=== PATIENT | male | born 1940 | race Caucasian/White ===

== ENCOUNTER → 2023-03-17 | Outpatient (CLI) | payer MEDICARE | LOC: LAB 10:17 → LAB SHORT 10:17 | DX: L08.9 Local infection of the skin and subcutaneous tissue, unspecified (principal) | CPT/HCPCS: 87070; 87205 ==

== ENCOUNTER → 2023-05-19 | Outpatient (CLI) | payer MEDICARE | LOC: LAB 09:30 → LAB SHORT 09:30 | DX: L08.9 Local infection of the skin and subcutaneous tissue, unspecified (principal) | CPT/HCPCS: 87070; 87205 ==

== ENCOUNTER → 2023-08-17 | Outpatient (CLI) | payer MEDICARE | LOC: LAB 10:00 → LAB SHORT 10:00 | DX: T81.89XA Other complications of procedures, not elsewhere classified, initial encounter (principal); D48.5 Neoplasm of uncertain behavior of skin; L57.0 Actinic keratosis; L24.4 Irritant contact dermatitis due to drugs in contact with skin; C44.222 Squamous cell carcinoma of skin of right ear and external auricular canal; L98.1 Factitial dermatitis; L57.8 Other skin changes due to chronic exposure to nonionizing radiation | CPT/HCPCS: 87070; 87205 ==

== ENCOUNTER 2024-01-24 13:59 | Emergency (ER) | payer MEDICARE ==
[~2024-01-24] VITALS: Ht 167.6 cm; Wt 54.4 kg
[~2024-01-24 13:59] MED LIST: ACET325 PO; ALOGLIPTIN25 M1 PO; AMOCLA875 PO; ATOR10 PO; Acetaminophen650 M1; Aspir 8181 MG PO; BISA10S PR; Benadryl Itch28.3 G1 TOP; CALC.25 PO; CINNAMON EXTRA500 MG; CLOBETASOL EMOL15 G1 TOP; EUTHYROX50 MCG PO; FISH OIL 1,0001 EA10; HYDCHL25 PO; HYDURE500 PO; IBUP200; INSULANPEN SC; JARDIANCE25 MG PO; LEVEMIR100 UNIT/1 SC; LISI10 PO; Lisinopril-Hct1 EAC4 PO; METF500 PO; SYNJARDY 12.5-1 EAC3 PO; TAMS.4ER PO; VISBIOME 112.51 EACH PO; VITAMIN D350 MC3; XARELTO15 MG PO; XARELTO20 MG PO
[2024-01-24 14:25] LABS: BASOPHILS ABSOLUTE AUTO 0.04 K/mm3 (0.00-0.23); BASOPHILS PERCENT AUTO 1 % (0-2); EOSINOPHILS ABSOLUTE AUTO 0.21 K/mm3 (0.00-0.68); EOSINOPHILS PERCENT AUTO 3 % (0-6); Hematocrit 30.9 % (37.0-53.0); IMMATURE GRAN ABSOLUTE AUTO 0.09 K/mm3 (0.00-0.10); IMMATURE GRAN PERCENT AUTO 1 % (0-1); LYMPHOCYTES ABSOLUTE AUTO 0.33 K/mm3 (0.84-5.20); LYMPHOCYTES PERCENT AUTO 4 % (21-46); MONOCYTES ABSOLUTE AUTO 0.49 K/mm3 (0.16-1.47); MONOCYTES PERCENT AUTO 6 % (4-13); Mean Corpuscular HGB 34.1 pg (26.0-34.0); Mean Corpuscular HGB Conc 32.4 g/dL (31.5-36.5); Mean Corpuscular Volume 106 fL (80-100); Mean Platelet Volume 10.7 fL (9.1-12.4); NEUTROPHILS ABSOLUTE AUTO 6.91 K/mm3 (1.96-9.15); NEUTROPHILS PERCENT AUTO 86 % (41-73); NRBC ABSOLUTE 0.08 K/mm3 (0.00-0.02); Platelet Count 387 K/mm3 (150-400); RDW Coefficient Variation 17.3 % (11.7-14.2); RDW Standard Deviation 66.9 fL (35.1-46.3); Red Blood Cell Count 2.93 M/mm3 (4.30-5.90); White Blood Cell Count 8.07 K/mm3 (4.00-11.30)
[2024-01-24] MEDS ORDERED: NS 1,000 ML IV SCH (14:35)
[2024-01-24 14:50] LABS: Albumin, Blood 2.4 g/dL (3.4-5.0); Albumin/Globulin Ratio 0.8 (0.8-1.8); Bilirubin, Total 0.4 mg/dL (0.1-1.0); Bun/Creatinine Ratio 24.9 (12.0-20.0); Calcium, Blood 9.3 mg/dL (8.5-10.1); Creatinine, Blood 0.72 mg/dL (0.60-1.20); Globulin, Blood 3.2 g/dL (2.2-4.0); Potassium, Blood 3.4 mmol/L (3.5-5.5); Total Protein, Blood 5.6 g/dL (6.4-8.2)
[2024-01-24 15:35] LABS: Influenza A, PCR NEGATIVE (NEGATIVE); Influenza B, PCR NEGATIVE (NEGATIVE); Resp Syncytial Virus, PCR NEGATIVE (NEGATIVE); SARS-Cov-2 (COVID-19) PCR, MMC NEGATIVE (NEGATIVE)
[2024-01-24 17:16] LABS: Source, Urine Voided
[2024-01-24 17:21] LABS: Appearance, Urine Clear (Clear); Bilirubin, Urine Neg (Neg); Blood, Urine 4+ (Neg); Glucose Qualitative, Urine 4+ (Neg); Ketones, Urine 1+ (Neg); Leukocyte Esterase, Urine 1+ (Neg); Nitrite, Urine Neg (Neg); Protein, Urine 1+ (Neg); Urobilinogen, Urine NORM (Normal)
[2024-01-24 17:40] LABS: Color, Urine Pale Yellow (P-Yellow)
[2024-01-24 17:41] LABS: Bacteria Few /hpf; Renal Epithelial Rare /hpf (0-Rare); Squamous Epithelial Cells Rare /hpf (Few)
[2024-01-24] MEDS ORDERED: CefTRIAXone Sodium 1,000 MG in NS 50 ML IV ONE (18:00)
[2024-01-24] MEDS ORDERED: CEPH500 PO (18:06)
[2024-01-24 19:20] VITALS: BP 125/65
[2024-01-27] MEDS ORDERED: CIPHYDOTSU RIGHTEAR (15:16)
[2024-01-27] MEDS ORDERED: OXAYDO5 M1 PO (15:16)
[2024-01-27] MEDS ORDERED: NEOPOLHCSU RIGHTEAR (17:57)
[2024-01-27] MEDS ORDERED: Percocet 5-3251 EACH PO (17:57)
== END 2024-01-24 19:32 | disposition home or self-care (01) ==
LOC: ER 13:59
PROVIDERS: Emergency Medicine
DX: N39.0 Urinary tract infection, site not specified (principal); C85.90 Non-Hodgkin lymphoma, unspecified, unspecified site; E03.9 Hypothyroidism, unspecified; E11.9 Type 2 diabetes mellitus without complications; Z79.890 Hormone replacement therapy; Z79.82 Long term (current) use of aspirin; Z79.899 Other long term (current) drug therapy; Z79.4 Long term (current) use of insulin; Z79.02 Long term (current) use of antithrombotics/antiplatelets; Z11.52 Encounter for screening for COVID-19
CPT/HCPCS: 0241U; 36415; 70450; 71045; 80053; 81001; 82140; 85025; 87040; 87086; 93005; 93010; 96361; 96374-59; 99285-25; J0696; J7030

== ENCOUNTER 2024-01-26 02:49 | Day surgery (SDC) | payer MEDICARE ==
[~2024-01-26 02:49] MED LIST changes: +CEPH500 PO
[2024-01-26 10:06] VITALS: BP 130/51
[2024-01-27] MEDS ORDERED: OXAYDO5 M1 PO (15:16)
[2024-01-27] MEDS ORDERED: CIPHYDOTSU RIGHTEAR (15:16)
[2024-01-27] MEDS ORDERED: Percocet 5-3251 EACH PO (17:57)
[2024-01-27] MEDS ORDERED: NEOPOLHCSU RIGHTEAR (17:57)
== END 2024-01-26 11:33 | disposition home or self-care (01) ==
LOC: ATC 02:49
DX: C44.222 Squamous cell carcinoma of skin of right ear and external auricular canal (principal); I10 Essential (primary) hypertension; E03.9 Hypothyroidism, unspecified; E11.9 Type 2 diabetes mellitus without complications; E78.5 Hyperlipidemia, unspecified; Z87.891 Personal history of nicotine dependence
CPT/HCPCS: 36569; C1751